=== PATIENT | male | born 1950 | race Caucasian/White ===

== ENCOUNTER 2018-07-30 00:41 | Emergency (ER) | payer SELFPAY ==
[2018-07-30 00:54] VITALS: BP 123/80
--- NOTE | 2018-07-30 01:14 | EDPHY ---
H & P Stated Complaint: fell 2 days ago due to intoxicated still having back and head pain Time Seen by Provider: 07/30/18 01:07 HPI/ROS: Chief Complaint: Needs a place to sleep, fall HPI: 68-year-old homeless male presenting to the emergency department this morning stating "I need some help with a place to sleep". He says he fell 2 days ago after drinking alcohol. He struck his right forehead. He has had some mild headache since that time. He is not taking any medicine. He has not followed up with physician for this. Denies any nausea or vomiting. No confusion. States he also needs some help with alcohol withdrawal. Last drink was about noon time. He tells me that primarily he is here because he needs help to find a place to sleep tonight. He is not interested in going to the [facility]. He is refusing to move from laying on his right side. Refusing to allow me to examine him. He says he simply wants to sleep through the night in the ED. ROS: 10 systems were reviewed and were negative except those elements noted in the HPI. PMH: Chronic alcohol abuse Social History: Positive smoking, daily heavy alcohol, Family History: non-contributory Physical Exam: Gen: Awake, Alert, Airway Intact HEENT: Head: Atraumatic Eyes: PERRLA, EOMI Nose: No epistaxis Mouth: Normal dentition, Airway patent Face: No deformity Neck: non-tender, no stepoff, Full ROM without pain Chest: non-tender, lungs CTA Heart: normal heart tones Abd: soft, non-tender, atraumatic Pelvis: non-tender, stable to AP and Lateral compression Back: atraumatic, no midline tenderness Ext: atramatic, full ROM Skin: no rash Neuro: CN II-XII intact, Strength 5/5 in all extremities, sensation intact in all extremities - Personal History Current Tetanus/Diphtheria Vaccine: No Current Tetanus Diphtheria and Acellular Pertussis (TDAP): No - Medical/Surgical History Hx Asthma: No Hx Chronic Respiratory Disease: No Hx Diabetes: Yes Hx Cardiac Disease: No Hx Renal Disease: No Hx Cirrhosis: Yes Hx Alcoholism: Yes Hx HIV/AIDS: No Hx Splenectomy or Spleen Trauma: No Other PMH: DM, HTN, ETOH - Social History Smoking Status: Current every day smoker Constitutional: Initial Vital Signs Temperature (C) 36.4 C 07/30/18 00:50 Heart Rate 78 07/30/18 00:50 Respiratory Rate 16 07/30/18 00:50 Blood Pressure 123/80 H 07/30/18 00:50 O2 Sat (%) 96 07/30/18 00:50 O2 Delivery Mode Room Air Allergies/Adverse Reactions: No Known Allergies Allergy (Unverified 07/30/18 00:54) Home Medications: Medication Instructions Recorded Unobtainable 07/30/18 Medical Decision Making ED Course/Re-evaluation: 68-year-old homeless male here asking for a place to sleep. He says he fell 2 days ago has struck his right forehead. For his nontender. I do not see any evidence of acute trauma. He is awake alert and comfortable appearing. He is not compliant with examination. He says he just wants me left lung to sleep in the emergency department. I have explained to him that this is not appropriate place for him to seek a place to sleep. He can be discharged to the [facility] or the [facility] assisted. Patient states he is not interested in going to those. I have explained that these are the best resources I have available to him. Patient does not have any examination or historical findings suggestive of acute traumatic injury. He is not compliant with full examination but his abdomen is soft and benign. Lungs are clear. Neurologically is completely intact any is not clinically intoxicated. Patient will be discharged with follow up with [facility] for any concerns. Patient has been ambulating without difficulty using his walker in the emergency department. He is in no distress. Departure - Departure Disposition: Home, Routine, Self-Care Clinical Impression: Alcohol dependence Condition: Good Instructions: Alcohol Dependence (ED) Additional Instructions: Follow up with [facility] in 2-3 days for any concerns. Referrals: [facility],. [Clinic] - As per Instructions
== END 2018-07-30 01:20 | disposition home or self-care (01) ==
DX: F10.20 Alcohol dependence, uncomplicated (principal); R51 Headache; Z59.0 Homelessness

== ENCOUNTER 2018-08-02 20:52 | Emergency (ER) | payer SELFPAY ==
--- NOTE | 2018-08-02 21:19 | EDPHY ---
H & P Time Seen by Provider: 08/02/18 20:57 HPI/ROS: CHIEF COMPLAINT: "Fuck you" HISTORY OF PRESENT ILLNESS: The patient is a 68-year-old male who presents emergency department via EMS. When I went to evaluate the patient he told me "fuck you." I tried to calm him and asked him why he was in the emergency department. He states he did need to be here and "don't fucking touch me." I asked him if he want to leave and he said yes. REVIEW OF SYSTEMS: Unable to obtain Smoking Status: Current every day smoker Physical Exam: He refused vital signs by the nursing staff Of note, the patient would not let me touch him. General: Patient was alert and looking at me. Eyes: Normal Resp: No respiratory distress Musculoskeletal: No deformity Neuro: Alert. Moves purposefully. Allergies/Adverse Reactions: No Known Allergies Allergy (Unverified 07/30/18 00:54) Home Medications: Medication Instructions Recorded Unobtainable 07/30/18 Medical Decision Making ED Course/Re-evaluation: In the emergency department patient was approached on numerous occasions see if he wanted to be seen. Every time he refused care. [facility] were notified. Differential Diagnosis: A to make an assessment because the patient refuses. He does not appear to be in distress from a distant evaluation. Departure - Departure Disposition: Against Medical Advice Clinical Impression: Refusal of care by patient Condition: Good Referrals: NONE *PRIMARY CARE P,. [Primary Care Provider] - As per Instructions
== END 2018-08-02 21:30 | disposition left against medical advice (07) ==
LOC: EDUNIT# → EDBD
DX: Z53.21 Procedure and treatment not carried out due to patient leaving prior to being seen by health care provider (principal)

== ENCOUNTER 2018-09-09 15:02 | Inpatient (IN) | payer MEDICAID, OTHER ==
[2018-09-09] MEDS ORDERED: NS 1,000 ML IV ONE (15:08)
--- NOTE | 2018-09-09 15:12 | EDPHY ---
H & P Time Seen by Provider: 09/09/18 15:09 HPI/ROS: HPI CHIEF COMPLAINT: Alcohol intoxication, headache. HISTORY OF PRESENT ILLNESS: This is a 68-year-old male, homeless, history of hypertension, diabetes and heavy alcohol use, presents emergency room by EMS after please make contact them outside of a grocery store as he was sitting on his walker. He urinated on himself. Please called 911 as they thought he was too intoxicated to safely be left. He arrives to the emergency room states last drink was yesterday. He states that he is having a migraine headache for the past 3 days. Denies neck pain, denies chest pain, denies fever. Patient states he suffers from migraine headaches but does not typically take any medication for them. Headaches present for 3 days. Describes the headache is 6/10 at the vertex of his scalp. Denies focal weakness numbness or tingling. Patient refused blood work or blood glucose by ems. Past Medical History: Hypertension, diabetes, alcoholism daily alcohol use Past Surgical History: No recent surgery Social History: Homeless. Daily alcohol use. Family History: Noncontributory ROS REVIEW OF SYSTEMS: 10 Systems were reviewed and negative with the exception of the elements mentioned in the history of present illness. Exam Constitutional smells of alcohol, unkept, nontoxic, poor hygiene, disheveled, triage nursing summary reviewed, vital signs reviewed, awake/alert. Vital signs stable. Eyes normal conjunctivae and sclera, EOMI, PERRLA. HENT normal inspection, atraumatic, moist mucus membranes, no epistaxis, neck supple/ no meningismus, no raccoon eyes. Respiratory clear to auscultation bilaterally, normal breath sounds, no respiratory distress, no wheezing. Cardiovascular rate normal, regular rhythm, no murmur, no edema, distal pulses normal. Gastrointestinal soft, non-tender, no rebound, no guarding, normal bowel sounds, no distension, no pulsatile mass. Genitourinary no CVA tenderness. Musculoskeletal no midline vertebral tenderness, full range of motion, no calf swelling, no tenderness of extremities, no meningismus, good pulses, neurovascularly intact. Skin pink, warm, & dry, no rash, skin atraumatic. Neurologic smells of alcohol, awake, alert and oriented x 3, AAOx3, moves all 4 extremities equally, motor intact, sensory intact, CN II-XII intact, normal cerebellar, normal vision, normal speech. Psychiatric normal mood/affect. Heme/Lymph/Immune no lymphadenopathy. Differential Diagnosis: Includes but is not limited to in a particular order acute alcohol intoxication, dehydration, electrolyte disturbance, migraine headache, intracranial bleed, hypertension urgency. Medical Decision Making: Plan for this patient IV establishment blood draw, check alcohol level, check blood glucose CT scan head without contrast re- evaluate. Re-evaluation: CT scan head without contrast called to me by Dr. Gilberto Montiel 153-for acute bleed. Small vessel ischemic changes. Otherwise unremarkable. 182 patient re-evaluated resting comfortably no acute distress. Patient provided Librium. Patient is agreeable going to the [facility] for detox. Librium will be provided Patient CT scan head unremarkable. Patient feeling better after IV fluids and p.o. Librium 25 mg. Return precautions discussed with the patient 184: Multiple attempts were made to get this patient to walk however he is too unsteady to walk safely. He does use a walker however every attempt to get him up to walk he is too unsteady shaking the patient is a great fall risk. Plan for this patient he will need to be admitted the hospital service for alcohol withdrawal, and unsteady gait, fall risk. He is too on safe to discharge directly out of the emergency room. 184: Patient admitted to the hospitalist service for alcohol draw. Ativan ordered. Patient is globally weak, unable to ambulate without risk of falling. Unsteady gait. Very shaky. Plan for admission Hospitalist service consult in accepts admission Dr. Peacock Source: Patient, EMS - Medical/Surgical History Hx Asthma: No Hx Chronic Respiratory Disease: No Hx Diabetes: Yes Hx Cardiac Disease: No Hx Renal Disease: No Hx Cirrhosis: Yes Hx Alcoholism: Yes Hx HIV/AIDS: No Hx Splenectomy or Spleen Trauma: No Other PMH: DM, HTN, ETOH - Social History Smoking Status: Current every day smoker Constitutional: Initial Vital Signs Temperature (C) 36.4 C 09/09/18 15:02 Heart Rate 84 09/09/18 15:02 Respiratory Rate 18 09/09/18 15:02 Blood Pressure 176/120 H 09/09/18 15:02 O2 Sat (%) 98 09/09/18 15:02 O2 Delivery Mode Room Air Allergies/Adverse Reactions: No Known Allergies Allergy (Verified 09/09/18 15:09) Home Medications: Medication Instructions Recorded ALPRAZolam [Xanax 1 MG (*)] 2 mg PO DAILY 09/09/18 Medical Decision Making - Data Points Laboratory Results: Laboratory Results 09/09/18 16:10 09/09/18 16:10 Medications Given: Enoxaparin Sodium (Lovenox) 40 mg SC DAILY JERMAINE Stop: 03/09/19 08:59 Last Admin: 09/11/18 09:02 Dose: 40 mg Hydralazine HCl (Apresoline) 10 mg IVP Q6HRS PRN PRN Reason: systolic over 170 Stop: 03/08/19 21:00 Last Admin: 09/11/18 11:47 Dose: 10 mg Famotidine/Sodium Chloride (Pepcid 20 Mg (Premix)) 50 mls @ 200 mls/hr IV Q12HRS JERMAINE Stop: 03/08/19 20:59 Last Admin: 09/11/18 10:12 Dose: 50 mls Sodium Chloride (Ns) 1,000 mls @ 75 mls/hr IV CONT JERMAINE Stop: 03/08/19 19:59 Last Admin: 09/11/18 15:29 Dose: 1,000 mls Thiamine HCl 500 mg/ Sodium (Chloride) 105 mls @ 210 mls/hr IV DAILY JERMAINE Stop: 09/13/18 08:59 Last Admin: 09/11/18 09:04 Dose: 105 mls Lisinopril (Zestril) 10 mg PO DAILY JERMAINE Stop: 03/09/19 08:59 Last Admin: 09/11/18 09:29 Dose: Not Given Lorazepam (Ativan Injection) 0 mg IVP Q1H PRN; Protocol PRN Reason: Alcohol Withdrawal w/IV access Stop: 03/08/19 19:48 Last Admin: 09/11/18 04:22 Dose: 2 mg Discontinued Medications Chlordiazepoxide HCl (Librium) 25 mg PO EDNOW ONE Stop: 09/09/18 17:50 Last Admin: 09/09/18 17:53 Dose: 25 mg Hydralazine HCl (Apresoline) 10 mg IVP ONCE ONE Stop: 09/10/18 02:29 Last Admin: 09/10/18 02:50 Dose: 10 mg Sodium Chloride (Ns) 1,000 mls @ 0 mls/hr IV EDNOW ONE; Wide Open PRN Reason: Protocol Stop: 09/09/18 15:09 Last Admin: 09/09/18 16:15 Dose: 1,000 mls Magnesium Sulfate (Magnesium Sulf 2 Gm (Premix)) 50 mls @ 50 mls/hr IV ONCE ONE Stop: 09/10/18 12:42 Last Admin: 09/10/18 12:14 Dose: 50 mls Lorazepam (Ativan Injection) 0 mg IVP Q1H PRN; Protocol PRN Reason: Alcohol Withdrawal w/IV access Stop: 09/10/18 06:42 Last Admin: 09/09/18 20:47 Dose: 2 mg Metoprolol Tartrate (Lopressor Injection) 5 mg IVP ONCE ONE Stop: 09/10/18 01:35 Last Admin: 09/10/18 01:44 Dose: 5 mg Departure - Departure Disposition: [facility] Clinical Impression: Generalized weakness Alcohol withdrawal Qualifiers: Complication of substance-induced condition: uncomplicated Qualified Code(s): F10.230 - Alcohol dependence with withdrawal, uncomplicated Condition: Fair
[2018-09-09 16:29] LABS: PLATELET COUNT 230 10^3/uL (150-400)
[2018-09-09] MEDS ORDERED: chlordiazePOXIDE 25 MG CAP PO ONE (17:49)
[2018-09-09] MEDS ORDERED: LORazepam 1 MG TAB PO PRN (18:42)
[2018-09-09] MEDS: LORazepam 2 MG/ML INJ IVP PRN ×4 (18:54→23:57)
--- NOTE | 2018-09-09 19:44 | PDGENHP ---
History and Physical - Chief Complaint INTOXICATION - History of Present Illness Patient is a 65-year-old homeless male with past medical history of diabetes hypertension and alcohol use who was picked up by police outside of a grocery store after he would not leave. The police brought him here as they thought it was too intoxicated to safely be left. He currently has no complaints to me and tells me that his last drink was last week although he told the emergency room physician that his last drink was last night. Apparently he stated that he was having a migraine headache although to me he denied any complaints. Apparently he urinated all over himself is a smelled strongly of urine. He denied any nausea vomiting blurry vision chest pain shortness of breath fevers chills cough dysuria diarrhea or other complaints to me. He said he takes no medications. He acknowledges that he drinks about a pt of [employer] per day. History Information - Allergies/Home Medication List Allergies/Adverse Reactions: No Known Allergies Allergy (Verified 09/09/18 15:09) Home Medications: ALPRAZolam [Xanax 1 MG (*)] 2 mg PO DAILY 09/09/18 [Last Taken 09/05/18] I have personally reviewed and updated: family history, medical history, social history, surgical history - Past Medical History Additional medical history: Per chart review diabetes, hypertension alcohol abuse - Family History Positive for: non-pertinent - Social History Smoking Status: Current every day smoker Alcohol Use: Heavy Review of Systems Review of Systems: ROS: 10pt was reviewed & negative except for what was stated in HPI & below Physical Exam Physical Exam: Temp Pulse Resp BP Pulse Ox 36.6 C 93 15 175/93 H 96 09/09/18 18:00 09/09/18 18:00 09/09/18 18:00 09/09/18 18:00 09/09/18 18:00 Constitutional: unkempt Eyes: PERRL, anicteric sclera, EOMI Ears, Nose, Mouth, Throat: moist mucous membranes, hearing normal, ears appear normal, no oral mucosal ulcers Cardiovascular: tachycardia, No edema Respiratory: no respiratory distress, no rales or rhonchi, clear to auscultation Gastrointestinal: normoactive bowel sounds, soft, non-tender abdomen, no palpable masses Genitourinary: no bladder fullness, no bladder tenderness Skin: warm, normal color, no rashes or abrasions, no fluctuance, no induration, No mottled Musculoskeletal: generalized weakness Neurologic: other (Oriented to self) Psychiatric: encephalopathic Lymph, Heme, Immunologic: no cervical LAD, no supraclavicular LAD Lab Data & Imaging Review 09/09/18 16:10 09/09/18 16:10 WBC 10.89 10^3/uL (3.80-9.50) H 09/09/18 16:10 RBC 4.38 10^6/uL (4.40-6.38) L 09/09/18 16:10 Hgb 13.1 g/dL (13.7-17.5) L 09/09/18 16:10 Hct 38.5 % (40.0-51.0) L 09/09/18 16:10 MCV 87.9 fL (81.5-99.8) 09/09/18 16:10 MCH 29.9 pg (27.9-34.1) 09/09/18 16:10 MCHC 34.0 g/dL (32.4-36.7) 09/09/18 16:10 RDW 13.3 % (11.5-15.2) 09/09/18 16:10 Plt Count 230 10^3/uL (150-400) 09/09/18 16:10 MPV 10.6 fL (8.7-11.7) 09/09/18 16:10 Neut % (Auto) 82.9 % (39.3-74.2) H 09/09/18 16:10 Lymph % (Auto) 10.3 % (15.0-45.0) L 09/09/18 16:10 Tate % (Auto) 5.9 % (4.5-13.0) 09/09/18 16:10 Eos % (Auto) 0.2 % (0.6-7.6) L 09/09/18 16:10 Baso % (Auto) 0.4 % (0.3-1.7) 09/09/18 16:10 Nucleat RBC Rel Count 0.0 % (0.0-0.2) 09/09/18 16:10 Absolute Neuts (auto) 9.04 10^3/uL (1.70-6.50) H 09/09/18 16:10 Absolute Lymphs (auto) 1.12 10^3/uL (1.00-3.00) 09/09/18 16:10 Absolute Monos (auto) 0.64 10^3/uL (0.30-0.80) 09/09/18 16:10 Absolute Eos (auto) 0.02 10^3/uL (0.03-0.40) L 09/09/18 16:10 Absolute Basos (auto) 0.04 10^3/uL (0.02-0.10) 09/09/18 16:10 Absolute Nucleated RBC 0.00 10^3/uL (0-0.01) 09/09/18 16:10 Immature Gran % 0.3 % (0.0-1.1) 09/09/18 16:10 Immature Gran # 0.03 10^3/uL (0.00-0.10) 09/09/18 16:10 Sodium 136 mEq/L (135-145) 09/09/18 16:10 Potassium 4.0 mEq/L (3.5-5.2) 09/09/18 16:10 Chloride 103 mEq/L (97-110) 09/09/18 16:10 Carbon Dioxide 19 mEq/l (22-31) L 09/09/18 16:10 Anion Gap 14 mEq/L (6-14) 09/09/18 16:10 BUN 18 mg/dL (7-23) 09/09/18 16:10 Creatinine 1.0 mg/dL (0.7-1.3) 09/09/18 16:10 Estimated GFR > 60 09/09/18 16:10 Glucose 218 mg/dL (70-100) H 09/09/18 16:10 Calcium 9.5 mg/dL (8.5-10.4) 09/09/18 16:10 Ethyl Alcohol 22 mg/dL (0-10) H 09/09/18 16:10 Assessment & Plan Assessment: 65-year-old homeless male brought into the ER by police for intoxication and weakness Alcohol withdrawal- I discussed the case with the emergency room physician. He does seem mildly confused made to be due to the Ativan that was given to him in the emergency room, but also due to being mildly intoxicated from alcohol. A CT head was obtained and I reviewed the results which showed no acute abnormalities. He has leukocytosis which may just be an acute phase reactant as I do not see any evidence of acute infection. -[facility] protocol -thiamin, folic acid, multivitamin -seizure precautions -hydration with intravenous saline -start with Ativan p.r.n., may need Precedex ultimately Hypertension- patient takes no meds for this but is currently hypertensive. Will add on p.r.n. Hydralazine for systolic blood pressures over 170. Should respond well to a treating his underlying alcohol withdrawal with Ativan Leukocytosis- with left shift. No current evidence of infection likely is an acute phase reactant due to alcohol withdrawal. -monitor for signs of infection -repeat H&H in the morning Diabetes- patient takes no medications for this apparently. His glucose is 218 in the emergency room. -start sliding scale insulin -check hemoglobin A1c Prophylaxis- SCDs and Lovenox Fluids- IV saline Electrolytes-within normal limits Nutrition-regular diet Cor-full code Dispo-anticipate needing more than 2 midnights will make inpatient
[2018-09-09] MEDS ORDERED: NS 500 ML IV PRN (19:49)
[2018-09-09] MEDS ORDERED: ONDANSETRON DISINTEGRATING 4 MG TAB PO PRN (19:49)
[2018-09-09] MEDS ORDERED: FLUMAZENIL 0.5 MG/5 ML MDV IVP PRN (19:49)
[2018-09-09] MEDS ORDERED: ACETAMINOPHEN 325 MG TAB PO PRN (19:49)
[2018-09-09] MEDS ORDERED: ONDANSETRON 4 MG/2 ML VIAL IVP PRN (19:49)
[2018-09-09] MEDS ORDERED: D50W 25 GM/50 ML SYR IVP PRN (20:09)
[2018-09-09] MEDS: NS 1,000 ML IV SCH (21:58)
[2018-09-09] MEDS: FAMOTIDINE 20 MG/NACL 50 ML IV SCH (21:58)
[2018-09-10] MEDS ORDERED: METOPROLOL TARTRATE 5 MG/5 ML INJ IVP ONE (01:34)
[2018-09-10] MEDS: LORazepam 2 MG/ML INJ IVP PRN ×6 (02:20→23:34)
[2018-09-10] MEDS ORDERED: hydrALAZINE 20 MG/ML VIAL IVP ONE (02:28)
[2018-09-10 05:01] LABS: PLATELET COUNT 264 10^3/uL (150-400)
[2018-09-10] MEDS: hydrALAZINE 20 MG/ML VIAL IVP PRN ×4 (06:25→23:27)
--- NOTE | 2018-09-10 08:03 | PDMN ---
Medical Necessity Medical [place] [facility] [id number] - 65 yr old homeless M with acute etoh intoxication - mildly confused with HTN, tachycardia, leukocytosis, CIWA protocol initiated, SZ precautions, DM, anticipate > 2 MN ongoing med nec care
[2018-09-10] MEDS: THIAMINE HCL 500 MG in NS 100 ML IV SCH (09:28)
[2018-09-10] MEDS: FAMOTIDINE 20 MG/NACL 50 ML IV SCH ×2 (10:07→19:39)
[2018-09-10] MEDS: ENOXAPARIN 40 MG/0.4 ML SYR SC SCH (10:08)
--- NOTE | 2018-09-10 11:42 | HOSPPROG ---
Hospitalist Progress Note Assessment/Plan: 65-year-old homeless male brought into the ER by police for intoxication and weakness Alcohol withdrawal- -[facility] protocol -thiamin, folic acid, multivitamin -seizure precautions -hydration with intravenous saline -start with Ativan p.r.n., may need Precedex ultimately Hypertension- patient takes no meds for this but is currently hypertensive. Added PO Lisinopril 20 mg this AM given hx of DM. Continue p.r.n. Hydralazine for systolic blood pressures over 170. Should also respond well to a treating his underlying alcohol withdrawal with Ativan Leukocytosis- with left shift. No current evidence of infection likely is an acute phase reactant due to alcohol withdrawal. -monitor for signs of infection Diabetes- patient takes no medications for this apparently. His glucose is 218 in the emergency room. -Sliding scale insulin -check hemoglobin A1c Prophylaxis- SCDs and Lovenox Fluids- IV saline Electrolytes-within normal limits Nutrition-regular diet Cor-full code Dispo-anticipate needing more than 2 midnights will make inpatient Subjective: Patient somnolent this morning Objective: Vital Signs Temp Pulse Resp BP Pulse Ox 37.6 C 111 H 18 187/88 H 94 09/10/18 03:25 09/10/18 10:01 09/10/18 10:01 09/10/18 10:01 09/10/18 10:01 Laboratory Results 09/10/18 03:20 09/10/18 03:20 09/09/18 09/10/18 09/11/18 05:59 05:59 05:59 Intake Total 1000 Balance 1000 - Physical Exam Constitutional: chronically ill appearing, unkempt Eyes: PERRL Ears, Nose, Mouth, Throat: dry mucous membranes Cardiovascular: tachycardia Respiratory: no respiratory distress Gastrointestinal: soft, non-tender abdomen Skin: normal color Musculoskeletal: generalized weakness Neurologic: No AAOx3 Psychiatric: No interacting appropriately ICD10 Worksheet Patient Problems: Problems Problem Status Onset Alcohol withdrawal Acute Generalized weakness Acute
[2018-09-10] MEDS ORDERED: MAGNESIUM SULF 2 GM/WATER 50 ML IV ONE (11:43)
[2018-09-10] MEDS: LISINOPRIL 10 MG TAB PO SCH (12:12)
--- NOTE | 2018-09-10 15:51 | ASMTCMCOM ---
CM Note CM Note Notes: 09/10/2018 Case Management Note Discussed pt during rounds this morning. Pt admitted for ETOH withdrawl. Unable to meet w/pt today d/t CIWA score and intoxication. Pt is homeless with history of HTN and diabetes. There are therapy evals pending. Discharge needs are unclear at this time. Case Management d/c poc: to be determined. Case Management to follow. Date Signed: 09/10/2018 03:51 PM Electronically Signed By:Vesna Pantoja RN
[2018-09-10] MEDS: NS 1,000 ML IV SCH (15:54)
[2018-09-11] MEDS: NS 1,000 ML IV SCH ×2 (03:13→15:29)
[2018-09-11] MEDS: LORazepam 2 MG/ML INJ IVP PRN ×2 (03:13→04:22)
[2018-09-11] MEDS: ENOXAPARIN 40 MG/0.4 ML SYR SC SCH (09:02)
[2018-09-11] MEDS: THIAMINE HCL 500 MG in NS 100 ML IV SCH (09:04)
[2018-09-11] MEDS: LISINOPRIL 10 MG TAB PO SCH (09:29)
[2018-09-11] MEDS: FAMOTIDINE 20 MG/NACL 50 ML IV SCH ×2 (10:12→20:00)
--- NOTE | 2018-09-11 11:28 | HOSPPROG ---
Hospitalist Progress Note Assessment/Plan: 65-year-old homeless male brought into the ER by police for intoxication and weakness Alcohol withdrawal- -[facility] protocol -thiamin, folic acid, multivitamin -seizure precautions -hydration with intravenous saline -start with Ativan p.r.n., may need Precedex ultimately Hypertension- patient takes no meds for this but is currently hypertensive. Added PO Lisinopril 20 mg on 09/10 given hx of DM. Continue p.r.n. Hydralazine as well. Should also respond well to a treating his underlying alcohol withdrawal with Ativan Leukocytosis- with left shift. No current evidence of infection likely is an acute phase reactant due to alcohol withdrawal. -monitor for signs of infection Diabetes- patient takes no medications for this apparently. His glucose is 218 in the emergency room. -Sliding scale insulin -Hemoglobin A1c 9.1 Prophylaxis- SCDs and Lovenox Fluids- IV saline Electrolytes-within normal limits Nutrition-regular diet Cor-full code Dispo-anticipate needing more than 2 midnights will make inpatient Subjective: Patiet remains somnolent this AM Objective: Vital Signs Temp Pulse Resp BP Pulse Ox 37.3 C 111 H 16 165/75 H 93 09/11/18 08:00 09/11/18 08:00 09/11/18 08:00 09/11/18 09:29 09/11/18 08:00 Laboratory Results 09/10/18 03:20 09/10/18 03:20 09/10/18 09/11/18 09/12/18 05:59 05:59 05:59 Intake Total 1000 2300 Balance 1000 2300 - Physical Exam Constitutional: chronically ill appearing, unkempt Cardiovascular: regular rate and rhythym Respiratory: no respiratory distress Gastrointestinal: No distension Genitourinary: No cisse in urethra Skin: normal color Neurologic: No AAOx3 Psychiatric: No interacting appropriately ICD10 Worksheet Patient Problems: Problems Problem Status Onset Alcohol withdrawal Acute Generalized weakness Acute
[2018-09-11] MEDS: hydrALAZINE 20 MG/ML VIAL IVP PRN ×2 (11:47→23:41)
[2018-09-12] MEDS: FAMOTIDINE 20 MG/NACL 50 ML IV SCH (08:52)
[2018-09-12] MEDS: ENOXAPARIN 40 MG/0.4 ML SYR SC SCH (09:45)
[2018-09-12] MEDS: THIAMINE HCL 500 MG in NS 100 ML IV SCH (09:45)
[2018-09-12] MEDS: LISINOPRIL 10 MG TAB PO SCH (09:49)
[2018-09-12] MEDS ORDERED: IOHEXOL 350mgI/ML (OMNIPAQUE) 150 ML BTL IV ONE (11:45)
--- NOTE | 2018-09-12 11:53 | HOSPPROG ---
Hospitalist Progress Note Assessment/Plan: 65yo homeless male brought into the ER by police for intoxication and inability to ambulate. Stroke alert called this AM for left sided weakness, unclear last known normal. 1. Acute encephalopathy: Metabolic vs toxic. No stroke on today's imaging. - Avoid centrally acting meds, dc'd CIWA 2. Left sided weakness: Unclear last known normal but ED notes report full strength. - Stroke alert called this AM, discussed with Alexis tele-neurology - Non-con CT head and CTA head/neck without stroke/thrombus - MRI brain and c-spine ordered - Starting daily aspirin 81mg 3. Alcohol abuse and withdrawal: No benzos required in >24 hours. - Stopping CIWA - Continue thiamine 4. Diabetes: A1c 9.1, not on meds as outpt - SSI 5. HTN: Likely driven by withdrawal - Added lisinopril 20mg 09/10, continue prn hydralazine 6. Leukocytosis: Suspect reactive, down-trending. VTE ppx: LMWH Code: full Diet: regular Dispo: Remain inpatient, unsafe for discharge Subjective: Alerted by RN this morning that patient was weaker left side. I urgently evaluated and agreed. Stroke alert called. Non-con CT head and CTA head /neck without stroke/thrombus. Discussed with tele-neurology. Objective: Vital Signs Temp Pulse Resp BP Pulse Ox 36.7 C 83 18 166/95 H 94 09/12/18 08:00 09/12/18 08:00 09/12/18 08:00 09/12/18 08:00 09/12/18 08:00 Laboratory Results 09/11/18 13:35 09/11/18 13:35 09/11/18 09/12/18 09/13/18 05:59 05:59 05:59 Intake Total 2299 2099 Balance 2299 2099 - Physical Exam Constitutional: unkempt Eyes: PERRL, anicteric sclera Ears, Nose, Mouth, Throat: dry mucous membranes Cardiovascular: regular rate and rhythym, no murmur, rub, or gallop, No edema Respiratory: no respiratory distress Gastrointestinal: normoactive bowel sounds, soft, non-tender abdomen, no palpable masses Genitourinary: no bladder fullness, no bladder tenderness, no renal bruits Skin: warm Neurologic: other (alert, not oriented, left sided weakness in arm and leg with some rigidity, ataxic on finger to nose testing on right), No facial droop Psychiatric: encephalopathic ICD10 Worksheet Patient Problems: Problems Problem Status Onset Alcohol withdrawal Acute Generalized weakness Acute
--- NOTE | 2018-09-12 15:44 | ASMTCMCOM ---
CM Note CM Note Notes: Pt still very drowsy and slurring words, CIWAs have decreased and pt was able to be conversant. Pt states he has family in [place] and he sleeps at the [facility]. [employer]er notified of pt's admission. [facility] also notified that pt was admitted. Pt's correct birthdate and SS number obtained by CM and changed in [employer]. Pt states he has Vet benefits, but that is not yet confirmed. OT currently recommending SNF, and pt is 2 max assist to the chair. Pt said he would be agreeable to 30-day SNF rehab stay if needed, however, pt is still slurring words and RASS -1. Pt states he would like to recover from ETOH and is willing to go to [facility] residential program in through [facility] after short term SNF rehab as he would like to eventually return to [place] where his family is. Message left for MACKENZIE Crawford at [facility] ([phone]) regarding pt's interest, noting that pt will need to attend SNF first to regain strength (unless this improves during admission). Pt will need to fill out application for [facility] (in chart) when RASS has improved. CM faxed [id number] and initiated ACMI eval (which takes 48 hours) for SNF placement and sent referrals to various SNFs in the area. CM to follow. D/C Plan: SNF TBD then [facility] recovery program (pending acceptance and verification of insurance coverage) Date Signed: 09/12/2018 03:43 PM Electronically Signed By:Elsy Covarrubias
[2018-09-12] MEDS ORDERED: LORazepam 2 MG/ML INJ IVP ONE ×2 (17:03→17:29)
[2018-09-12] MEDS: LORazepam 2 MG/ML INJ IVP PRN (17:05)
[2018-09-12] MEDS ORDERED: LORazepam 2 MG/ML INJ ONE (17:32)
[2018-09-13] MEDS: NS 1,000 ML IV SCH (06:33)
[2018-09-13] MEDS: ENOXAPARIN 40 MG/0.4 ML SYR SC SCH (08:25)
[2018-09-13] MEDS: THIAMINE HCL 100 MG TAB PO SCH (08:25)
[2018-09-13] MEDS: ASPIRIN 81 MG CHEWABLE TAB PO SCH (08:25)
[2018-09-13] MEDS: LISINOPRIL 10 MG TAB PO SCH (08:26)
[2018-09-13] MEDS ORDERED: D50W 25 GM/50 ML SYR IVP PRN (11:35)
[2018-09-13] MEDS: INSULIN LISPRO 100 UNIT/ML SC SCH ×2 (11:53→17:35)
--- NOTE | 2018-09-13 12:16 | ASMTCMCOM ---
CM Note CM Note Notes: 09/13/2018 Case Management Note Pt screened by [employer] for manager terminal medicaid today. Confirmed pt has vet benefits. Faxed referrals for SNF placement to all [place] facilities in [place]. ACMI assessment pending. Case Management d/c poc: to be determined. Case Management to follow. Date Signed: 09/13/2018 12:15 PM Electronically Signed By:Vesna Pantoja RN
--- NOTE | 2018-09-13 14:11 | HOSPPROG ---
Hospitalist Progress Note Assessment/Plan: 65yo homeless male brought into the ER by police for intoxication and inability to ambulate. Stroke alert called 09/12 for left sided weakness, no stroke on imaging and now improved. 1. Acute on ? chronic metabolic encephalopathy: He is improving. Likely related to etoh intoxication/mild withdrawal. Head imaging shows very severe cerebral atrophy that I suspect is related to heavy etoh consumption. However, he does report some urinary incontinence and falls over last 6 months raising the possibility of normal pressure hydrocephalus - Will consult neurology for opinion on NPH - Avoid centrally acting meds 2. Left sided weakness: Now resolved. - Stroke alert 09/12. Non-con CT head, CTA head/neck, brain MRI without stroke - MRI c-spine without etiology 3. Alcohol abuse and withdrawal: Does not appear to be withdrawing any long - Stopped CIWA - Continue thiamine 4. History of recent falls: Unclear if due to intoxication or underlying neurologic disorder - PT/OT, neuro eval as above 5. 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 He is neurologically intact. - Will discuss with neurosurgery 6. Diabetes: A1c 9.1, not on meds as outpt - SSI 7. HTN: BP slightly up - Added lisinopril 20mg 09/10, continue prn hydralazine 8. Leukocytosis: Suspect reactive, resolved. VTE ppx: LMWH Code: full Diet: regular Dispo: Remain inpatient, unsafe for discharge Subjective: Much more alert today. Following commands reliably. Denies pain. Doesn't feel like he's withdrawing from alcohol. Has been having urinary incontinence and falls as outpatient for last 6 months. Objective: Vital Signs Temp Pulse Resp BP Pulse Ox 36.8 C 70 18 160/96 H 95 09/13/18 11:32 09/13/18 11:32 09/13/18 11:32 09/13/18 11:32 09/13/18 11:32 Laboratory Results 09/13/18 04:13 09/13/18 04:13 09/12/18 09/13/18 09/14/18 05:59 05:59 05:59 Intake Total 2100 1500 303 Output Total 600 Balance 2100 900 303 - Physical Exam Constitutional: no apparent distress, unkempt Eyes: PERRL, anicteric sclera, EOMI Ears, Nose, Mouth, Throat: moist mucous membranes, hearing normal, ears appear normal, no oral mucosal ulcers Cardiovascular: regular rate and rhythym, no murmur, rub, or gallop, No edema Respiratory: no respiratory distress, no rales or rhonchi, clear to auscultation Gastrointestinal: normoactive bowel sounds, soft, non-tender abdomen, no palpable masses Genitourinary: no bladder fullness, no bladder tenderness, no renal bruits Skin: no rashes or abrasions, no fluctuance, no induration Musculoskeletal: full muscle strength Neurologic: AAOx3, sensation intact bilaterally, CN II-XII Intact, other (very very mild ataxia on bilateral finger to nose), No weakness, No numbness, No asterixes, No facial droop Psychiatric: interacting appropriately ICD10 Worksheet Patient Problems: Problems Problem Status Onset Alcohol withdrawal Acute Generalized weakness Acute
[2018-09-13] MEDS ORDERED: PROTOCOL POTASSIUM 1 DOSE MISC PRN (14:24)
--- NOTE | 2018-09-13 17:00 | ASMTCMCOM ---
CM Note CM Note Notes: 09/13/2018 Case Management Note Phone Call from [place] requesting case management call eligibility line at [phone]. Left VM. Per RN at [facility] and [facility] pt is not registered in [place] for [place] benefits. He may have benefits in [place]. Best placement for pt if he does have VA benefits will be in [facility] or [place]. Both have SNF levels of care that coordinate with alcohol cessation. Case Management d/c poc: to be determined. Date Signed: 09/13/2018 04:59 PM Electronically Signed By:Vesna Pantoja RN
[2018-09-13] MEDS ORDERED: POTASSIUM CL 10 MEQ TAB PO ONE (20:12)
[2018-09-14] MEDS ORDERED: POTASSIUM CL 10 MEQ TAB PO ONE (06:52)
[2018-09-14] MEDS: ENOXAPARIN 40 MG/0.4 ML SYR SC SCH (08:35)
[2018-09-14] MEDS: INSULIN LISPRO 100 UNIT/ML SC SCH ×3 (08:35→17:17)
[2018-09-14] MEDS: LISINOPRIL 10 MG TAB PO SCH (08:36)
[2018-09-14] MEDS: ASPIRIN 81 MG CHEWABLE TAB PO SCH (08:36)
[2018-09-14] MEDS: THIAMINE HCL 100 MG TAB PO SCH (08:36)
--- NOTE | 2018-09-14 09:03 | GCON ---
[f rep st] CONSULTATION NEUROLOGIC CONSULTATION REFERRING PHYSICIAN: Krish Lopez MD REASON FOR CONSULTATION: The patient is a 60-year-old gentleman I am asked to see in neurologic cons ultation regarding the question of normal-pressure hydrocephalus. He was admitted to the hospital on September 09. He has a history of chronic alcoholism and continues to drink alcohol regularly. He wa s felt to be too unsafe to be sent home in the short term. He had been sitting outside of a grocery store and sitting on a walker and had lost bladder control, and it was not felt that he was safe due to his intoxication. He was complaining of some headache. He tells me that for at least 2 years he has had problems with balance and urinary frequency and some incontinence and says sometimes poor mem ory. In his words, he thinks that his lifestyle has really hurt him with history of drug abuse and a lcoholism. In the course of his workup, there were also concerns about whether he could be having a stroke, so he had a head CT and head CT angiogram, and these did not show any evidence of acute strok e. However, these were diagnostic studies done on September 12. There was felt to be relatively more left-sided weakness. The nurse had contacted hospitalist service saying he was noticeably weaker on the left, and that led to this diagnostic evaluation. On that head CT, there was prominent hydrocep halus. The CT angiogram of the neck showed less than 30% stenosis of the carotid arteries at the bul b level. Patent vertebral vessels. Subsequent MRI does not show evidence of an acute stroke, but so me nonspecific change in the white matter in the left temporal lobe region as well as the very promin ent generalized ventricular enlargement with relatively less cerebral atrophy. Because of this constellation of symptoms and imaging findings, I have been asked to consult. PAST MEDICAL HISTORY: Unremarkable except for reported hypertension, diabetes, and alcoholism. He r eports polysubstance abuse over the years. Continued heavy alcohol use. Still smoking. He has a ho meless status. MEDICATIONS: Listed home medication is Xanax, but I am not sure who is treating him and what the ind ication is. He is receiving daily aspirin, antihypertensive medications, Lovenox, lisinopril, thiami ne. ALLERGIES: No known drug allergies. REVIEW OF SYSTEMS: Negative for any headache now. PHYSICAL EXAM: VITAL SIGNS: Blood pressure is 155/84, pulse of 64, respirations 16, temperature 37. 0. GENERAL: He is well developed, in no acute distress. He has a generally disheveled appearance. NEUROLOGICAL: He is generally oriented to the basic situation, but has decreased fund of knowledge. He is able to follow commands. He speaks slowly, but clearly. Pupils 3 mm and reactive. Extraocu lar movements intact. Normal facial sensation and strength. The motor exam reveals a mild generaliz ed weakness of about 4/5 and a little greater but somewhat effort dependent. He lifts the left arm m ore slowly than the right, suggesting it might be a little bit weak, but then on manual testing, it w as less clear. Reflexes hypoactive. Sensation seems to at least be symmetric and relatively intact. I did not have him currently walking with me. He has significant unsteadiness but utilizes his wal ker most of the time. The nurse reports he is very impulsive and will get up, even though he has bee n instructed to ask for help to get up. IMAGING: The patient's cervical spine MRI from September 12 was also reviewed. There was a fair amou nt of motion, and there was some disk herniation causing central canal stenosis, particularly at C5-C 6, with mild flattening of the right side of the cervical cord. IMPRESSION: Total unit time of 50 minutes. This patient has chronic alcoholism, and this can contri bute to the cerebral atrophy, chronic gait dysfunction, cognitive dysfunction, but is not typically a ssociated with urinary frequency or incontinence. The imaging findings are suspicious for normal pre ssure hydrocephalus, but they are still nonspecific and do not allow us to make a definitive diagnosi s of that clinical syndrome. With that in mind, the only effective diagnostic strategies for predict ing good outcome generally lean toward repeated high-volume lumbar punctures or sustained lumbar drai mary with documentation of pre and post draining gait speed and coordination and general mobility. I f he were to have a prominent improvement, then that can sometimes justify shunting. Because of this patient's current status and alcoholism, I do not think it would be appropriate to suggest shunting. I told him that these are procedures that could potentially help him, but we would have to figure t hat out over time, and I would recommend that he demonstrate sustained sobriety for at least 6 months and if able to do that and still has these problems, then doing a large volume lumbar puncture and r epeated documentation of improvements would be the process for making a long-term decision on whether to put in a shunt. Even that would not be appropriate in someone who could not have consistent medi yael followup. Therefore, we can see him as an outpatient if he is able to follow up, but otherwise s imply supportive care is all I think is appropriate at this stage. /[id number]/MODL
--- NOTE | 2018-09-14 10:53 | HOSPPROG ---
Hospitalist Progress Note Assessment/Plan: 65yo homeless male brought into the ER by police for intoxication and inability to ambulate. Stroke alert called 09/12 for left sided weakness, no stroke on imaging and now improved. 1. Acute on ? chronic metabolic encephalopathy: Resolved. Likely related to etoh intoxication/mild withdrawal. Head imaging shows very severe cerebral atrophy that I suspect is related to heavy etoh consumption. However, he does report some urinary incontinence and falls over last 6 months raising the possibility of normal pressure hydrocephalus - Neurology eval'd this AM. Wouldn't recommend large volume LPs (to treat NPH ) until patient sober for 6 months - Avoid centrally acting meds 2. Left sided weakness: Now resolved. - Stroke alert 09/12. Non-con CT head, CTA head/neck, brain MRI without stroke - MRI c-spine without etiology 3. Alcohol abuse and withdrawal: Not withdrawing any longer - Stopped CIWA - Continue thiamine 4. History of recent falls: Unclear if due to intoxication or underlying neurologic disorder - PT/OT recommending SNF, patient refusing 5. 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 He is neurologically intact. - Neurosurgery consulted 09/14, will see 6. Diabetes: A1c 9.1, not on meds as outpt - SSI 7. HTN: BP slightly up - Added lisinopril 20mg 09/10, continue prn hydralazine 8. Leukocytosis: Suspect reactive, resolved. VTE ppx: LMWH Code: full Diet: regular Dispo: Remain inpatient, unsafe for discharge as unable to ambulate safely. Subjective: Feeling better today. Has some low back pain from lying in bed. Left arm still feels a little weak Objective: Vital Signs Temp Pulse Resp BP Pulse Ox 37.0 C 64 16 155/84 H 93 09/14/18 08:00 09/14/18 08:00 09/14/18 08:00 09/14/18 08:00 09/14/18 08:00 Laboratory Results 09/13/18 04:13 09/14/18 04:30 09/13/18 09/14/18 09/15/18 05:59 05:59 05:59 Intake Total 1500 803 Output Total 600 900 Balance 900 -97 - Physical Exam Constitutional: no apparent distress, unkempt Eyes: PERRL, anicteric sclera Ears, Nose, Mouth, Throat: moist mucous membranes Cardiovascular: regular rate and rhythym, No edema Respiratory: no respiratory distress, no rales or rhonchi, clear to auscultation Gastrointestinal: normoactive bowel sounds, soft, non-tender abdomen, no palpable masses Genitourinary: no bladder fullness, no bladder tenderness, no renal bruits Skin: no rashes or abrasions, no fluctuance, no induration Musculoskeletal: full muscle strength Neurologic: AAOx3, CN II-XII Intact, No weakness, No numbness Psychiatric: interacting appropriately ICD10 Worksheet Patient Problems: Problems Problem Status Onset Alcohol withdrawal Acute Generalized weakness Acute
--- NOTE | 2018-09-14 12:21 | ASMTCMCOM ---
CM Note CM Note Notes: 09/14/2018 Case Management Note Met w/pt to discuss discharge needs. Pt refuses 30 day SNF stay. 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 Pt is uncertain if alcohol cessation is a personal goal. Pt states family is in [facility], however pt could not provide any phone numbers or addresses. Discussed coordinated entry process. Confirmed pt is slotted to path to home. Per pt, he sleeps mostly on the streets occasionally using one of the severe weather shelters. Appointment made for pt at [facility] for follow up on Tuesday at 11:45 am. Alerted [facility] case supervisor. Discussed with RN and MD. Case Management d/c poc: path to home Case Management to follow. Date Signed: 09/14/2018 12:20 PM Electronically Signed By:Vesna Pantoja RN
[2018-09-14] MEDS: NS 1,000 ML IV SCH (15:41)
[2018-09-14] MEDS: hydrALAZINE 20 MG/ML VIAL IVP PRN (16:38)
--- NOTE | 2018-09-14 19:38 | GCON ---
[f rep st] CONSULTATION REASON FOR CONSULTATION: Arm weakness, gait instability. HOSPITAL COURSE, HISTORY, AND MAJOR MEDICAL FINDINGS: The patient is a 60-year-old gentleman who cam e into the emergency room on 09/09/2018. He was picked up by the police outside of a grocery store a fter he would not leave. They thought he was too intoxicated to be safely left, and then, he was adm itted. He is a homeless individual who has a past medical history of diabetic hypertension. He also was having some urinary incontinence and admitted for further workup. Upon further examination, the patient was found to have some left-sided weakness and stroke alert was called. Based on his left-sided weakness, a brain MRI and cervical spine MRI were ordered. The bra in MRI demonstrated severe cerebral atrophy with no evidence of cortical infarct or hemorrhage, and t here was some evidence of asymmetric isovolemic gliosis noted. A cervical spine MRI did have some mo tion artifact in it but did show a right-sided disk herniation causing flattening of the cord at C5-6 , and Neurosurgery was consulted. Upon examining the patient, he was ambulating in the hallway with a walker. According to the physica l therapist, he was having some difficulty with independent gait and he needed to be closely monitore d. The patient states that left arm weakness, he has had for quite some time, and he has felt unstea dy in his legs for several months, as well as having urinary incontinence for several months. He den ies any new pain. REVIEW OF SYSTEMS: Negative other than what is stated in the HPI. Please see for pertinent negative s and pertinent positives. PAST MEDICAL HISTORY: Significant for diabetic hypertension, history of diabetes, hypertension, and history of alcohol abuse. PAST SURGICAL HISTORY: Taken from the patient's chart as he is not able to fully recall his past med ical history or his past surgical history. FAMILY HISTORY: He states his parents are alive in their 80s, and he is unaware of any cancers or he art disease that runs in his family. ALLERGIES: No known drug allergies. MEDICATIONS: Last listed include Xanax, aspirin, Lovenox, lisinopril, and thiamine. SOCIAL HISTORY: The patient is a heavy alcohol user. He does smoke and is currently homeless, resid ing locally here in [place]. PHYSICAL EXAM: VITALS: BP is 141/83. His heart rate is 65. He is 96% on room air, and his temp is 37.1. NEUROLOGIC: The patient is no acute distress. He is alert and oriented to place, as well as himself, but is not oriented to time. Cranial nerves 2-12 are grossly intact. The patient does hav e diffuse left upper extremity weakness which is 5-/5 in his bodybuilder, biceps, triceps, and deltoid. In his right upper extremity, he has a 5/5 in his deltoid, biceps, and bodybuilder. In his iliopsoas, hamstrin gs, quadriceps, plantar flexion, dorsiflexion, EHL in his lower extremities, he has 5/5. Negative Ho ffman's bilaterally. Negative clonus bilaterally. Brachioradialis and biceps reflexes are 2+ bilate rally. Patellar reflex is 1+ bilaterally. ASSESSMENT AND PLAN: The patient is a 60-year-old gentleman who was brought into the hospital for in toxication. He was found to have some left-sided weakness. His cervical MRI does not demonstrate an y acute cause for this left upper extremity weakness. He is also being seen by Neurology and Dr. Jose brantley, who have some concerns, given his gait instability, urinary incontinence, and confusion, that there may be a component of normal-pressure hydrocephalus. They have ordered a PT evaluation for th is. At this point, we do not see any acute neurosurgical intervention. We will continue to follow u p with the patient tomorrow to see how his normal-pressure hydrocephalus workup with Neurology pans o ut. The patient was seen both by Dr. Ugalde and myself. If there is any change in neurological or m otor exam, please notify Neurosurgery. /[id number]/MODL
[2018-09-15] MEDS: hydrALAZINE 20 MG/ML VIAL IVP PRN (00:05)
[2018-09-15] MEDS ORDERED: hydrALAZINE 25 MG TAB PO PRN (00:42)
[2018-09-15] MEDS ORDERED: POTASSIUM CL 10 MEQ TAB PO ONE (06:19)
[2018-09-15] MEDS ORDERED: POTASSIUM CL 10 MEQ TAB ONE (08:46)
--- NOTE | 2018-09-15 09:19 | NEUSURGPN ---
Assessment/Plan: 60y/o male who was brought in by police for ETOH intoxication who was found to have left arm weakness and history of gait instability and incontinence. -Neurology on board for assessment of NPH -His cervical MRI demonstrates a right sided disc herniation at C5/6, but this does not explain is Diffuse left arm weakness. Discussed with Dr. Ugalde and there is not an acute neurosurgical indication at this time. Will s/o. Please notify NS with any change in neuro/motor exam. Subjective: Denies any new pain. States his incontinence and strength in his left arm have been stable. Objective: NAD Oriented only to person and place. Face symmetric PERRLA MAEx4, LUE diffusely 5-/5 as compared to the right. - Physician Discussed Patient with : [facility] Physical Exam - Vitals, I&O, Labs I and O 09/14/18 09/15/18 09/16/18 05:59 05:59 05:59 Intake Total 803 200 Output Total 900 Balance -97 200 Weight 76.6 kg Intake: Oral (ml) 500 200 IV Intake (ml) 303 Output: Urine (ml) 900 Catheter 700 Urinal 200 Other: Intake Quantity Yes Yes Sufficient Number of Voids Incontinence 1 1 Toilet 1 1 Urinal 1 Vital Signs Temp Pulse Resp BP Pulse Ox 37 C 73 16 145/76 H 95 09/15/18 08:00 09/15/18 08:00 09/15/18 08:00 09/15/18 08:00 09/15/18 08:00 Laboratory Results 09/13/18 04:13 09/15/18 04:30 ICD10 Worksheet Patient Problems: Problems Problem Status Onset Alcohol withdrawal Acute Generalized weakness Acute
[2018-09-15] MEDS: THIAMINE HCL 100 MG TAB PO SCH (10:17)
[2018-09-15] MEDS: ENOXAPARIN 40 MG/0.4 ML SYR SC SCH (10:17)
[2018-09-15] MEDS: ASPIRIN 81 MG CHEWABLE TAB PO SCH (10:17)
[2018-09-15] MEDS: LISINOPRIL 10 MG TAB PO SCH (10:17)
[2018-09-15] MEDS: INSULIN LISPRO 100 UNIT/ML SC SCH ×2 (10:18→13:38)
[2018-09-15 12:35] VITALS: BP 145/80
--- NOTE | 2018-09-15 15:19 | PDDCSUM ---
Discharge Summary Discharge Summary: 65yo homeless male brought into the ER by police for intoxication and inability to ambulate. Stroke alert called 09/12 for left sided weakness, no stroke on imaging and now improved. He was seen by both Neurosurgery and Neurology. He was felt not to have any neuro surgical needs. From a neuro perspective, there was some concern about NPH but since he is an active alcoholic, it was decided not to perform intervention until he is sober for 6 months. Please see Neurology dictated consultation. He will f/u with Neurology. DDX 1. Acute on chronic metabolic encephalopathy: Resolved. Likely related to etoh intoxication/mild withdrawal. Head imaging shows very severe cerebral atrophy that I suspect is related to heavy etoh consumption. However, he does report some urinary incontinence and falls over last 6 months raising the possibility of normal pressure hydrocephalus - Neurology doesnt recommend large volume LPs (to treat NPH) until patient sober for 6 months - Avoid centrally acting meds 2. Left sided weakness: Now resolved. - Stroke alert 09/12. Non-con CT head, CTA head/neck, brain MRI without stroke - MRI c-spine without etiology 3. Alcohol abuse and withdrawal: Not withdrawing any longer - Stopped CIWA - Continue thiamine 4. History of recent falls: Unclear if due to intoxication or underlying neurologic disorder - PT/OT recommending SNF, patient refusing 5. 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 He is neurologically intact. - Neurosurgery consulted 09/14, no interventions 6. Diabetes: A1c 9.1, not on meds as outpt -compliance is an issue 7. HTN: 8. Leukocytosis: Suspect reactive, resolved. Exam: NAD AAOX3 RRR NO RESP DISTRESS MEDS: SEE MED REC F/U: WITH NEUROLOGY TOTAL TIME SPENT ON D/C IS 35 MINS
--- NOTE | 2018-09-15 15:32 | ASMTLACE ---
LACE Length of stay for Answers: 4-6 days current admission Acuity / Level of Answers: Yes Care: Did the patient have an inpatient admission? Comorbidities - select Answers: Diabetes (uncontrolled or all that apply controlled) Other Notes: HTN # of Emergency department Answers: 3-4 visits in the last 6 months Social determinants Answers: History of substance abuse (ETOH, street drugs, prescription drugs, etc.) Homelessness (street, alf) Score: 18 Date Signed: 09/15/2018 03:32 PM Electronically Signed By:Scarlett Garcia RN
--- NOTE | 2018-09-15 15:36 | ASMTDCNOTE ---
Case Management Discharge Discharge Order Complete? Answers: Yes Patient to Obtain Answers: Independently Medications Transportation Arranged Answers: Taxi - Voucher Discharge Comments Notes: Patient discharged to the streets. He has been given instructions to follow up at [facility]. I provided a cab voucher so that he does not get sidetracked. [facility] community case manager notified of his arrival. He has an appt at [facility] Tuesday 09/19. Date Signed: 09/15/2018 03:35 PM Electronically Signed By:Scarlett Garcia RN
--- NOTE | 2018-09-20 09:11 | ASDISCHSUM ---
Discharge Information Plan Status:Homeless/Assisted Medically Cleared to Leave:09/14/2018 Discharge Date:09/15/2018 03:52 PM CM D/C Disposition:Home, Routine, Self-Care ADT D/C Disposition:Home, Routine, Self-Care Projected Discharge Date:09/12/2018 11:00 AM Transportation at D/C:Cab Voucher Discharge Delay Reason: Follow-Up Date:09/12/2018 11:00 AM Discharge Slot: Final Diagnosis: Placement Information Referral Type:*Care Home/SNF Referral ID:[id number] Provider Name: Address 1: Phone Number: Address 2: Fax Number: City: Selection Factors: State: Patient Contact Information Contact Name:CARLOPEMA Relationship: Address: Home Phone: Work Phone: City: Alternate Phone: [facility] Code: Email: Financial Information Financial Class:Medicaid Primary Plan Desc[place] Primary Plan Number:[id number] Secondary Plan Desc: Secondary Plan Number: Assessment Information LACE LACE Length of stay for Answers: 4-6 days current admission Acuity / Level of Answers: Yes Care: Did the patient have an inpatient admission? Comorbidities - select Answers: Diabetes (uncontrolled or all that apply controlled) Other Notes: HTN # of Emergency department Answers: 3-4 visits in the last 6 months Social determinants Answers: History of substance abuse (ETOH, street drugs, prescription drugs, etc.) Homelessness (street, fdc) Score: 18 Date Signed: 09/15/2018 03:32 PM Electronically Signed By:Scarlett Garcia RN [facility] KYM Progress Note CM Note KYM Note Notes: 09/10/2018 Case Management Note Discussed pt during rounds this morning. Pt admitted for ETOH withdrawl. Unable to meet w/pt today d/t CIWA score and intoxication. Pt is homeless with history of HTN and diabetes. There are therapy evals pending. Discharge needs are unclear at this time. Case Management d/c poc: to be determined. Case Management to follow. Date Signed: 09/10/2018 03:51 PM Electronically Signed By:Vesna Pantoja RN [facility] Progress Note CM Note CM Note Notes: Pt still very drowsy and slurring words, CIWAs have decreased and pt was able to be conversant. Pt states he has family in [place] and he sleeps at the [facility]. [facility] RN notified of pt's admission. [facility] also notified that pt was admitted. Pt's correct birthdate and SS number obtained by [facility] and changed in [place]. Pt states he has Vet benefits, but that is not yet confirmed. OT currently recommending SNF, and pt is 2 max assist to the chair. Pt said he would be agreeable to 30-day SNF rehab stay if needed, however, pt is still slurring words and RASS -1. Pt states he would like to recover from ETOH and is willing to go to [facility] residential program in through [facility] after short term SNF rehab as he would like to eventually return to [place] where his family is. Message left for MACKENZIE Crawford at [facility] ([phone]) regarding pt's interest, noting that pt will need to attend SNF first to regain strength (unless this improves during admission). Pt will need to fill out application for [facility] (in chart) when RASS has improved. CM faxed [id number] and initiated ACMI eval (which takes 48 hours) for SNF placement and sent referrals to various SNFs in the area. CM to follow. 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 Confirmed pt has vet benefits. Faxed referrals for SNF placement to all [place] facilities in [place]. ACMI assessment pending. Case Management d/c poc: to be determined. Case Management to follow. Date Signed: 09/13/2018 12:15 PM Electronically Signed By:Vesna Pantoja RN [facility] CM Progress Note CM Note CM Note Notes: 09/13/2018 Case Management Note Phone Call from [place] requesting case management call eligibility line at [phone]. Left VM. Per RN at [facility] and [facility] pt is not registered in [place] for [place] benefits. He may have benefits in [place]. Best placement for pt if he does have VA benefits will be in [facility] or [place]. Both have SNF levels of care that coordinate with alcohol cessation. Case Management d/c poc: to be determined. Date Signed: 09/13/2018 04:59 PM Electronically Signed By:Vesna Pantoja RN [facility] CM Progress Note CM Note CM Note Notes: 09/14/2018 Case Management Note Met w/pt to discuss discharge needs. Pt refuses 30 day SNF stay. 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 Pt is uncertain if alcohol cessation is a personal goal. Pt states family is in [facility], however pt could not provide any phone numbers or addresses. Discussed coordinated entry process. Confirmed pt is slotted to path to home. Per pt, he sleeps mostly on the streets occasionally using one of the severe weather shelters. Appointment made for pt at [facility] for follow up on Tuesday at 11:45 am. Alerted [facility] counter caser. Discussed with RN and MD. Case Management d/c poc: path to home Case Management to follow. Date Signed: 09/14/2018 12:20 PM Electronically Signed By:Vesna Pantoja RN Case Management Discharge Plan Note Case Management Discharge Discharge Order Complete? Answers: Yes Patient to Obtain Answers: Independently Medications Transportation Arranged Answers: Taxi - Voucher Discharge Comments Notes: Patient discharged to the streets. He has been given instructions to follow up at [facility]. I provided a cab voucher so that he does not get sidetracked. [facility] welfare case worker notified of his arrival. He has an appt at [facility] Tuesday 09/19. Date Signed: 09/15/2018 03:35 PM Electronically Signed By:Scarlett Garcia RN Intervention Information
== END 2018-09-15 15:52 | disposition home or self-care (01) | DRG 775 ==
LOC: EDUNIT# → EDBD 15:02 → OBSVTOIN 18:46 → F2W 21:09 → F3E 09-12 23:50
PROVIDERS: ADMIT Internal Medicine; ATTEND Family Medicine
PROC: HZ2ZZZZ Detoxification Services for Substance Abuse Treatment (ICD-10-PCS; principal; 2018-09-09)
DX: F10.230 Alcohol dependence with withdrawal, uncomplicated (principal); F10.229 Alcohol dependence with intoxication, unspecified; G31.2 Degeneration of nervous system due to alcohol; G91.2 (Idiopathic) normal pressure hydrocephalus; M50.222 Other cervical disc displacement at C5-C6 level; T51.0X1A Toxic effect of ethanol, accidental (unintentional), initial encounter; Y90.1 Blood alcohol level of 20-39 mg/100 ml; I10 Essential (primary) hypertension; E11.9 Type 2 diabetes mellitus without complications; F17.210 Nicotine dependence, cigarettes, uncomplicated; R00.0 Tachycardia, unspecified; R26.89 Other abnormalities of gait and mobility; R32 Unspecified urinary incontinence; Z59.0 Homelessness
CPT/HCPCS: 80305; 92523-GN; 96374; 97116-GP; 97161-GP; 97166-GO; 97530-GO; 97535-GO; G0480; J0360; J1650; J1815; J2060; J3411; J3475; Q9967